=== PATIENT | female | born 1950 | race Caucasian/White ===

== ENCOUNTER → 2016-12-11 | Outpatient (CLI) | payer OTHER, BC ==
[~2016-12-11] VITALS: Ht 152.4 cm; Wt 52.7 kg
[~2016-12-11] MED LIST: IBUPROFEN 200200 M1 PO; NABUMETONE 500500 M1 PO; ROBAXIN500 MG PO; ROXICODONE5 MG PO; VITAMIN D1000 UNI1 PO
--- NOTE | ~2016-12-11 | HPC ---
[facility] [place] [address] PAIN MANAGEMENT CONSULTATION Name: AMOS CHRISTENSEN Room #: REG Shaylee Flaquita#: [id number] Admission: 12/11/16 Attend Phys: Emanuel Mirza DO Discharge: Date of : 46 Report #: [id number] THIS REPORT FOR: //name// CC: BRITTANI Mirza DATE OF SERVICE: 12/11/2016 CHIEF COMPLAINT: Low back pain, left lower extremity pain and paresthesias. HISTORY OF PRESENT ILLNESS: As you know, the patient is a very pleasant 66-year-old female who reports longstanding history of low back pain, left lower extremity pain with paresthesias. The patient indicates pain began somewhere in October and progressively worsened. She indicates pain is continuous; describes the pain as shooting, aching, throbbing and stabbing in sensation; places current pain score 5/10, daily average of 3-5/10, worst pain has been is 10/10. The patient states that "moving things" exacerbates symptoms, nothing appears to improve pain. She has been referred to our service to discuss options for treatment for suspected lumbar radiculopathy. PAST MEDICAL HISTORY: None. PAST SURGICAL HISTORY: Shoulder surgery, hysterectomy. SOCIAL HISTORY: The patient denies tobacco, alcohol, IV or illicit drug use. She is retired, retired years ago. She is not receiving workman's compensation nor is she trying to obtain disability benefits. She is unaccompanied at today's visit. REVIEW OF SYSTEMS: Positive for fatigue and weakness, low back pain, left lower extremity pain. All other review of systems negative per 12-point review of systems other than those listed in history of present illness. Pain impact score 30/70 indicating [id number]-kh-[id number] interference with daily activities secondary to pain. ALLERGIES: No known drug allergies. CURRENT MEDICATIONS: Ibuprofen 200 mg p.r.n., cholecalciferol 1000 units per day. IMAGING: MRI lumbar spine obtained on 11/28/2016 shows L1-L2 with mild disk bulge, no central canal neural foraminal stenosis, thecal sac measuring 1.4 cm; L2-L3 mild right lateral subluxation of L2 on L3, diffuse posterior disk bulge, minimal facet arthropathy, ligamentum flavum hypertrophy, mild effacement of the [address] [address] PAIN MANAGEMENT CONSULTATION Name: AMPAROAMOS Room #: REG NERI Sams#: [id number] Admission: 12/11/16 Attend Phys: Emanuel Mirza DO Discharge: Date of : 46 Report #: [id number] ventral thecal sac, mild neural foraminal narrowing, thecal sac measures 1.3 cm ____; L3-L4 diffuse disk bulge, mild facet arthropathy, ligamentum flavum hypertrophy, mild effacement of the ventral thecal sac, mild right and moderate left neural foraminal narrowing, thecal sac measures 1.4 cm; L4-L5 diffuse disk bulge to the left, left foraminal disk component, moderate to advanced narrowing of the left foramen, possible compression of the exiting L4 nerve root, mild facet arthropathy, thecal sac measuring 1.4 cm; L5-S1 unremarkable, thecal sac measures 1.6 cm. PHYSICAL EXAMINATION: VITAL SIGNS: Blood pressure 145/88, pulse 73, respiratory rate 14 unlabored. The patient is 100% on room air. Height 5 feet tall, weight 116.2 pounds, BMI calculated 22.7. GENERAL: Well-developed, well-nourished, well-hydrated 66-year-old female who appears her stated age. She is complaining of pain at a level of 5/10 to 8/10. HEENT: Normocephalic, atraumatic. Pupils equal, round, reactive to light. Extraocular muscles are intact. Sclerae nonicteric without injection. NEUROLOGIC: Cranial nerves 2 through 12 grossly intact. Speech is fluent. The patient deemed a good historian. LUNGS: Clear. No wheeze, rhonchi or rales. CARDIOVASCULAR: Regular. No appreciable gallop or rub. ABDOMEN: Soft, nontender, nondistended, normoactive bowel sounds. EXTREMITIES: Show no clubbing, no cyanosis, no edema. MUSCULOSKELETAL: Lower extremity strength appears equal and symmetrical 5/5, intact to light touch from L1 through S2 dermatomes. Deep tendon reflexes are symmetrical at patella and Achilles. Ankle clonus negative. Babinski is negative. Seated straight leg raising negative. Supine straight leg raising positive on the left. KAILEE test negative. Modified Gaenslen's positive for axial low back pain. Gait appears normal, stance is slightly forward flexed lumbar spine. ASSESSMENT: 1. Symptomatic lumbar radiculopathy. 2. Displacement of lumbar intervertebral disk with radiculopathy. 3. Lumbosacral spondylosis with radiculopathy. 4. Neural foraminal stenosis of lumbar spine. 5. Lumbar degeneration. 6. Chronic intractable pain. PLAN: 1. Based on today's physical exam and history the patient has provided, the description the patient uses in regards to pain as well as location of symptoms, likely source of the patient's pain is lumbar radiculopathy. The patient and I spent 22 minutes of time today reviewing her MRI and correlating the findings to her current symptoms utilizing digital imaging and modeling. The patient and I discussed the findings at the L4-L5 as the like source of the patient's current [facility] [address] [place] [address] PAIN MANAGEMENT CONSULTATION Name: AMOS CHRISTENSEN Room #: REG [facility]..#: [id number] Admission: 12/11/16 Attend Phys: Emanuel Mirza DO Discharge: Date of : 46 Report #: [id number] condition. We discussed with the patient treatment options based on her physical findings and imaging studies. The following was discussed with the patient today. 2. We discussed physical therapy, stretching exercises, core strengthening. We discussed medication management, the addition of a neuropathic pain medication and consistent nonsteroidal anti-inflammatory. We discussed lumbar epidural injections for which the patient was referred to our clinic, spinal cord stimulator therapy and surgical options. After reviewing the risks and benefits of all the proposed treatment options, the patient chose conservative medical therapy initially. If this is ineffective, move forward with an epidural injection. 3. The patient was provided a prescription of nabumetone 500 mg dose 1 tab p.o. t.i.d., this is provided for anti-inflammatory effects. She is to watch for dyspepsia, worsening of blood pressure, lower extremity edema with use of medication. No side effects, continue the medication as directed. She was given #90 tablets with 2 refills. 4. The patient was provided a prescription of Robaxin 500 mg dose 1 tab p.o. t.i.d. p.r.n. muscle spasms. I have given the patient #90, releases of today, 4 weeks from today, 8 weeks from today, 3 months' worth of medication. The patient is advised not to drive or operate heavy equipment while on this medication. 5. The patient was provided a prescription of oxycodone 5 mg dose 1 tab p.o. b.i.d. p.r.n. pain, #60, no refills. I have advised the patient to take one-half tab to One tab p.o. q. 12 hours p.r.n. for pain. 6. We will see the patient back in followup visit in 3 weeks. At that time, discuss the efficacy of the medication provided. If no improvement in symptoms are noted, we would recommend moving forward with an epidural injection. 7. We would like to thank Dr. Howell for the referral of this patient to our clinic. We will keep you apprised of her response to treatment as we address her ongoing lumbar radicular symptoms. Again, we wish to thank you for the opportunity to participate in the patient care. By: [id number] Emanuel Mirza DO /nt
[2016-12-11 09:25] VITALS: BP 145/88
== END ==
LOC: PAIN 06:24
DX: M51.16 Intervertebral disc disorders with radiculopathy, lumbar region (principal); M47.27 Other spondylosis with radiculopathy, lumbosacral region; M48.06 Spinal stenosis, lumbar region; G89.29 Other chronic pain; I10 Essential (primary) hypertension; Z88.5 Allergy status to narcotic agent; Z79.891 Long term (current) use of opiate analgesic; Z87.891 Personal history of nicotine dependence

== ENCOUNTER → 2017-01-01 | Outpatient (CLI) | payer OTHER, BC ==
[~2017-01-01] VITALS: Ht 152.4 cm; Wt 53.9 kg
[~2017-01-01] MED LIST changes: +JUICE PLUS PO
--- NOTE | ~2017-01-01 | HPC ---
[facility] [address] [address] PAIN MANAGEMENT CONSULTATION Name: AMOS CHRISTENSEN Room #: REG [facility] Flaquita#: [id number] Admission: 01/01/17 Attend Phys: Emanuel Mirza DO Discharge: Date of : 46 Report #: [id number] THIS REPORT FOR: //name// CC: Jayshree Mirza DATE OF SERVICE: 01/01/2017 REFERRING PHYSICIAN: Jayshree Howell MD CHIEF COMPLAINT: Low back pain, left lower extremity pain and paresthesias. HISTORY OF PRESENT ILLNESS: As you know, the patient is a very pleasant 66-year-old female who returns today in followup visit with continued low back pain, left lower extremity pain and paresthesias. The patient was seen in our clinic on 12/11/2016 diagnosed with symptomatic lumbar radiculopathy secondary to the displacement of a lumbar intervertebral disk. She also suffers from fairly significant neural foraminal stenosis of lumbar spine due to lumbar facet arthropathy and lumbar degeneration. She returns today in followup visit indicating that medication therapy has not been effective in alleviating symptoms. She has provided a pain score today of around 6/10. She apparently is not taking any of the opioid medication. She is just taking the nabumetone and Robaxin. She notes some improvement with the medication, but this is only transient. She returns today to discuss more definitive treatment options. ALLERGIES: No known drug allergies. CURRENT MEDICATIONS: Methocarbamol 500 mg three times a day, nabumetone 500 mg three times a day, cholecalciferol 1000 units per day. SOCIAL HISTORY: The patient denies tobacco, alcohol, IV or illicit drug use. She is retired, retired years ago. She is unaccompanied today. IMAGING: No new imaging available. PHYSICAL EXAMINATION: VITAL SIGNS: Blood pressure 126/74, pulse 72, respiratory rate 14 and unlabored, the patient is 98% on room air. Height 5 feet tall, weight 118.8 pounds, BMI calculated at 23.2. GENERAL: A well-developed, well-nourished, well-hydrated 66-year-old female appearing her stated age, placing current pain score at approximately 6/10. HEENT: Normocephalic, atraumatic. Pupils are equal, round, and reactive to light. Extraocular muscles are intact. EXTREMITIES: Show no clubbing, no cyanosis, no edema. MUSCULOSKELETAL: Seated straight leg raising is negative. Supine straight leg [facility] [address] [place] [address] PAIN MANAGEMENT CONSULTATION Name: AMOS CHRISTENSEN Room #: REG [facility]#: [id number] Admission: 01/01/17 Attend Phys: Emanuel Mirza DO Discharge: Date of : 46 Report #: [id number] raising is positive on the left. Brittani test negative. Gait is antalgic favoring left lower extremity over right. ASSESSMENT: 1. Symptomatic lumbar radiculopathy. 2. Displacement of lumbar intervertebral disk with radiculopathy. 3. Lumbosacral spondylosis with radiculopathy. 4. Neural foraminal stenosis of lumbar spine. 5. Lumbar degeneration. 6. Chronic intractable pain. PLAN: 1. The patient has returned today in followup visit indicating continued low back pain, left lower extremity pain at level of 6/10. Despite the changes in medication therapy, the patient continues to experience pain in a radicular fashion radiating down the left leg. We have discussed with the patient other treatment options, which would include alteration in medication therapy, utilizing neuropathic pain medications in conjunction with her current nonsteroidal anti-inflammatory and a muscle relaxant. We discussed epidural injections under fluoroscopic guidance and spinal cord stimulator therapy and surgical options. After reviewing the risks and benefits of all proposed treatment options, the patient chose to undergo lumbar epidural injection under fluoroscopic guidance. The patient was advised risks and benefits of a lumbar epidural injection. These risks include but are not necessarily limited to bleeding, bruising, infection, worsening pain, no relief of pain, also risk of temporary or permanent muscle weakness, temporary or permanent nerve damage, possible paralysis and . The patient states understood and wished to proceed. 2. No medication changes were made at today's visit. The patient will continue current medical therapy as previously prescribed. 3. We will see the patient back in followup visit 3 weeks from today. At that time, review the efficacy of today's epidural injection and determine if next in the series might be necessary. PROCEDURE NOTE: Lumbar epidural steroid injection under fluoroscopic guidance using left paramedian approach. DESCRIPTION OF PROCEDURE: This is the first procedure of the first series that the patient is undergoing. After obtaining written consent, the patient was taken back to the fluoroscopy suite, placed in a prone position with pillow under the abdomen to decrease lumbar lordosis. The skin overlying the lumbosacral area was then prepped and draped in aseptic fashion. The L5-S1 vertebral interspace was then identified by AP fluoroscopy. The skin and subcutaneous tissue overlying the target site [address] [address] PAIN MANAGEMENT CONSULTATION Name: AMOS CHRISTENSEN Room #: REG NERI Sams#: [id number] Admission: 01/01/17 Attend Phys: Emanuel Mirza DO Discharge: Date of : 46 Report #: [id number] of injection was anesthetized with 3 mL 1% lidocaine. A 20-guage 3-1/2 inch Tuohy needle was then advanced under fluoroscopic guidance towards the epidural space using a left paramedian approach. The epidural space was identified using loss of resistance to air technique. After negative aspiration for heme or cerebrospinal fluid, a total of 1 mL of Omnipaque was injected. A lumbar epidurogram was confirmed using both AP and lateral fluoroscopy. After negative aspiration for heme or cerebrospinal fluid, 5 mL of a solution containing 2 mL 40 mg per mL, 80 mg total triamcinolone, 3 mL lidocaine 1% was injected in increments. Contrast spread was noted posterior epidural space. The needle was then retracted approximately half way and needle tract flushed with 1 mL of 1% lidocaine. Needle was then removed. There were no apparent sensory or motor deficits in the lower extremity following the procedure. A sterile bandage was placed over the injection site. The heart rate, pulse, oximetry and blood pressure were continuously monitored after the procedure. There were no apparent complications. The patient tolerated the procedure well and was carefully escorted to the recovery room in stable condition. There were no apparent complications. After meeting discharge criteria, the patient was then discharged home. <ELECTRONICALLY SIGNED> By: Emanuel Mirza DO 01/02/17 [id number] Emanuel Mirza DO /nt
[2017-01-01 09:41] VITALS: BP 126/74
== END | disposition home or self-care (01) ==
LOC: PAIN 07:11
DX: M51.16 Intervertebral disc disorders with radiculopathy, lumbar region (principal); M47.27 Other spondylosis with radiculopathy, lumbosacral region; M48.06 Spinal stenosis, lumbar region; G89.29 Other chronic pain; Z79.899 Other long term (current) drug therapy

== ENCOUNTER → 2017-02-05 | Outpatient (CLI) | payer OTHER, BC ==
[~2017-02-05] VITALS: Ht 152.4 cm; Wt 34.5 kg
--- NOTE | ~2017-02-05 | HPC ---
[facility] [address] [address] PAIN MANAGEMENT CONSULTATION Name: AMOS CHRISTENSEN Room #: REG [facility] Flaquita#: [id number] Admission: 02/05/17 Attend Phys: Emanuel Mirza DO Discharge: Date of : 46 Report #: [id number] THIS REPORT FOR: //name// CC: Jayshree Mirza DATE OF SERVICE: 02/05/2017 CHIEF COMPLAINT: Low back pain, left lower extremity pain and paresthesias. HISTORY OF PRESENT ILLNESS: As you know, the patient is a very pleasant 66-year-old female who returns today in followup visit with continued low back pain, left lower extremity pain and paresthesias. She indicates pain today at a level of 1-2/10, states pain is aching and burning in sensation, exacerbated by bending and lifting, improves with medications. The patient reports epidural injection at last visit provided 80% improvement in overall pain. She had been doing well until recently with a slow and progressive return of symptoms. She returns today requesting a repeat epidural injection under fluoroscopic guidance. She indicates that she has time today, she will return to home, relax today and tomorrow, which typically improves efficacy. She returns to undergo epidural injection under fluoroscopic guidance to address ongoing pain in hopes of building on success of previous intervention. ALLERGIES: No known drug allergies. CURRENT MEDICATIONS: Methocarbamol, nabumetone, cholecalciferol. SOCIAL HISTORY: The patient denies tobacco, alcohol, IV or illicit drug use. She is retired, retired years ago, unaccompanied today. IMAGING: No new imaging available. PHYSICAL EXAMINATION: VITAL SIGNS: Blood pressure 145/75, pulse 76, respiratory rate 12, unlabored. The patient is 100% on room air. Height 5 feet tall, weight 76 pounds, BMI calculated 14.8. GENERAL: Well-developed, well-nourished, well-hydrated 66-year-old female, appears her stated age. She is placing her current pain score at 1-2/10. HEENT: Normocephalic, atraumatic. Pupils equal, round, reactive to light. Extraocular muscles are intact. Sclerae nonicteric, without injection. EXTREMITIES: Show no clubbing, no cyanosis, no edema. MUSCULOSKELETAL: Seated straight leg raising negative. Supine straight leg raising positive on the left. KAILEE test negative. Modified Gaenslen's positive for axial low back pain. Gait appears improved, but slightly antalgic. [address] [address] PAIN MANAGEMENT CONSULTATION Name: AMOS CHRISTENSEN Room #: REG Shaylee Sams#: [id number] Admission: 02/05/17 Attend Phys: Emanuel Mirza DO Discharge: Date of : 46 Report #: [id number] ASSESSMENT: 1. Symptomatic lumbar radiculopathy. 2. Displacement of lumbar intervertebral disk with radiculopathy. 3. Lumbosacral spondylosis with radiculopathy. 4. Neural foraminal stenosis of the lumbar spine. 5. Lumbar degeneration. 6. Chronic intractable pain. PLAN: 1. The patient returns today in followup visit, having noted good efficacy with the initial epidural injection. She reported up to 80% improvement in overall pain with slow and progressive return of symptoms. She has returned today in followup visit requesting to undergo the second in series of epidural injections in hopes of building on success of previous intervention. The patient has been advised of the risks and the benefits of a lumbar epidural injection. These risks include but are not necessarily limited to bleeding, bruising, infection, worsening pain, no relief of pain, also risk of temporary or permanent muscle weakness, temporary or permanent nerve damage, possible paralysis and . The patient states she understood and wished to proceed. 2. No medication changes were made at today's visit. The patient to continue current medical therapy as previously prescribed. 3. The patient to return to our clinic on an as-needed basis for the third and final in series of epidural injections in the 6 months. DESCRIPTION OF PROCEDURE: Lumbar epidural steroid injection under fluoroscopic guidance using a left paramedian approach. This is the second procedure of the first series that the patient is undergoing. After obtaining written consent, the patient was taken back to the fluoroscopy suite, placed in a prone position with pillow under the abdomen to decrease lumbar lordosis. The skin overlying the lumbosacral area was then prepped and draped in aseptic fashion. The L5-S1 vertebral interspace was then identified by AP fluoroscopy. The skin and subcutaneous tissue overlying the target site of injection was anesthetized with 3 mL 1% lidocaine. A 20-gauge 3-1/2-inch Tuohy needle was then advanced under fluoroscopic guidance towards the epidural space using a left paramedian approach. The epidural space was identified using loss of resistance to air technique. After negative aspiration for heme or cerebrospinal fluid, a total of 1 mL of Omnipaque was injected. A lumbar epidurogram was confirmed using both AP and lateral fluoroscopy. After negative aspiration for heme or cerebrospinal fluid, 5 mL of a solution containing 2 mL 40 mg per mL, 80 mg total triamcinolone, 3 mL lidocaine 1% was injected in increments. Contrast spread was noted posterior epidural space. The needle was then retracted approximately half way and needle tract flushed with 1 mL of 1% lidocaine. Needle was then removed. There were [facility] [address] [place] [address] PAIN MANAGEMENT CONSULTATION Name: AMPAROAMOS Room #: REG [facility] Flaquita#: [id number] Admission: 02/05/17 Attend Phys: Emanuel Mirza DO Discharge: Date of : 46 Report #: [id number] no apparent sensory or motor deficits in the lower extremity following the procedure. A sterile bandage was placed over the injection site. The heart rate, pulse, oximetry and blood pressure were continuously monitored after the procedure. There were no apparent complications. The patient tolerated the procedure well and was carefully escorted to the recovery room in stable condition. There were no apparent complications. After meeting discharge criteria, the patient was then discharged home. By: [id number] Emanuel Mirza DO /nt
[2017-02-05 10:51] VITALS: BP 145/75
== END | disposition home or self-care (01) ==
LOC: PAIN 01-22 09:13
DX: M51.16 Intervertebral disc disorders with radiculopathy, lumbar region (principal); M47.27 Other spondylosis with radiculopathy, lumbosacral region; G89.29 Other chronic pain; M48.061 Spinal stenosis, lumbar region without neurogenic claudication; Z79.891 Long term (current) use of opiate analgesic